=== PATIENT | female | born 1995 ===

== ENCOUNTER 2017-08-14 21:51 | Emergency (ER) | payer SELFPAY ==
[2017-08-14 22:12] VITALS: BP 156/93; PULSE 82; RESP 18; TEMP 98; O2SAT 99
--- NOTE | 2017-08-14 22:17 | ED PDOC ---
Upper Extremity Pain/Injury Time Seen by Provider: 08/14/17 22:15 Chief Complaint (Nursing): Upper Extremity Problem/Injury Chief Complaint (Provider): left arm pain History Per: Patient Additional Complaint(s): 21-year-old right-hand dominant female presents with pain to left arm ongoing for several months. Patient does not recall any trauma or injury. She states that today the pain got worse after ED visit. Patient took Advil earlier but this did not help. No associated chest pain, shortness of breath or dyspnea on exertion. Patient denies any associated numbness or tingling to affected area. No associated neck pain. Patient states she does do heavy lifting from time to time at work. Past Medical History Reviewed: Historical Data, Nursing Documentation, Vital Signs Vital Signs: Last Vital Signs Temp 98 F 08/14/17 22:09 Pulse 82 08/14/17 22:09 Resp 18 08/14/17 22:09 BP 156/93 H 08/14/17 22:09 Pulse Ox 99 08/14/17 22:09 - Medical History PMH: No Chronic Diseases - Surgical History Surgical History: No Surg Hx - Family History Family History: States: No Known Family Hx - Living Arrangements Living Arrangements: With Family - Social History Current smoker - smoking cessation education provided: No Alcohol: None Drugs: Denies - Allergies Allergies/Adverse Reactions: Allergies Allergy/AdvReac Type Severity Reaction Status Date / Time No Known Allergies Allergy Verified 08/14/17 22:09 Review of Systems ROS Statement: Except As Marked, All Systems Reviewed And Found Negative Constitutional: Negative for: Fever Cardiovascular: Negative for: Chest Pain Respiratory: Negative for: Cough Gastrointestinal: Negative for: Nausea, Vomiting Musculoskeletal: Positive for: Other (left arm pain ongoing for several months) Physical Exam - Reviewed Nursing Documentation Reviewed: Yes Vital Signs Reviewed: Yes - Physical Exam Appears: Positive for: Well, Non-toxic, No Acute Distress Skin: Negative for: Rash Eye Exam: Positive for: Normal appearance Neck: Positive for: Painless ROM Cardiovascular/Chest: Positive for: Regular Rate, Rhythm Respiratory: Positive for: Normal Breath Sounds Extremity: Positive for: Other (Tenderness to posterior left shoulder as well as left elbow region, full range of motion left shoulder and left elbow with pain, strong left handgrip, normal distal sensation) Neurologic/Psych: Positive for: Alert, Oriented - Laboratory Results Urine POC: Negative - ECG O2 Sat by Pulse Oximetry: 99 Pulse Ox Interpretation: Normal - Other Rad Left shoulder and elbow x-rays X-Ray: Interpreted by Me, Viewed By Me X-Ray Interpretation: no fx, no dis Medical Decision Making Medical Decision Makin21 year old with left arm pain ongoing for several months. Plan: PO tylenol X-ray left shoulder and left elbow Advised NSAID's for pain and follow up with clinic for further evaluation. Disposition - Clinical Impression Clinical Impression: Left arm pain - Patient ED Disposition Is Patient to be Admitted: No Counseled Patient/Family Regarding: Studies Performed, Diagnosis, Need For Followup - Disposition Referrals: [facility] [Outside] Disposition: Routine/Home Disposition Time: 23:30 Condition: STABLE Additional Instructions: Alternate tylenol every 4 hrs and motrin every 6 hrs. Follow up with clinic. Instructions: Arm Pain (ED) Forms: [employer] (Maltese)
--- NOTE | 2017-08-15 10:51 | RAD ---
PROCEDURE: Radiographs of the left elbow. HISTORY: pain COMPARISON: No prior. FINDINGS: BONES: Bone alignment and mineralization are normal. There is no acute displaced fracture or bone destruction. JOINTS: Normal. SOFT TISSUES: Normal. JOINT EFFUSION: None. OTHER FINDINGS: None IMPRESSION: No acute fracture or dislocation.
--- NOTE | 2017-08-15 11:16 | RAD ---
PROCEDURE: Radiographs of the Left Shoulder HISTORY: Pain COMPARISON: No prior. FINDINGS: BONES: Bone alignment and mineralization are normal. There is no acute displaced fracture or bone destruction. JOINTS: Normal. Glenohumeral and acromioclavicular joints preserved. SOFT TISSUES: Normal. OTHER FINDINGS: None. IMPRESSION: No acute fracture or dislocation.
== END 2017-08-14 23:43 | disposition home or self-care (01) ==
LOC: H.ER 21:51
DX: M79.602 Pain in left arm (principal)

== ENCOUNTER 2017-10-14 18:13 | Emergency (ER) | payer OTHER, SELFPAY ==
[2017-10-14 18:24] VITALS: O2SAT 100
[2017-10-14 19:16] LABS: BASO % 0.4 % (0.0-2.0); EOS # 0.1 K/uL (0.0-0.7); EOS % 1.3 % (0.0-4.0); HEMATOCRIT 36.8 % (34.0-47.0); LYMPH # 2.6 K/uL (1.0-4.3); LYMPH % 29.9 % (20.0-40.0); MEAN CELL VOLUME 85.7 fl (81.0-99.0); MEAN CORPUSCULAR HEMOGLOBIN 28.2 pg (27.0-31.0); MEAN PLATELET VOLUME 7.9 fl (7.2-11.7); MONO # 0.6 K/uL (0.0-0.8); MONO % 7.1 % (0.0-10.0); NEUT # 5.2 K/uL (1.8-7.0); NEUT % 61.3 % (50.0-75.0); NRBC % 0.1 % (0.0-0.0); RED CELL DISTRIBUTION WIDTH 14.3 % (11.5-14.5); WHITE BLOOD COUNT 8.5 K/uL (4.8-10.8)
--- NOTE | 2017-10-14 19:38 | ED PDOC ---
HPI: Chest Pain Time Seen by Provider: 10/14/17 18:25 Chief Complaint (Nursing): Palpitations Chief Complaint (Provider): Chest Pain History Per: Patient History/Exam Limitations: no limitations Onset/Duration Of Symptoms: Sudden Onset (1 hour prior to arrival) Current Symptoms Are (Timing): Still Present Additional Complaint(s): 21 y/o female with no past medical history, presents to the ED complaining of chest pain and associated shortness of breath and palpitations, with an onset of 1 hour prior to arrival. Patient describes the chest pain as pressure-like pain and the palpitations, as if her heart was racing; both seem to have resolved according to patient. Patient also states that just prior to onset she ate at [employer], which resulted in some stomach pain for a few minutes, but then resolved. She also reports of having a cough since yesterday, that has worsened and results in nonproductive phlegm. Last week she had 2 episodes of shortness of breath that occurred and resolved spontaneously after a few minutes. She denies any leg swelling, fever, sore throat, and rhinorrhea. Past Medical History Reviewed: Historical Data, Nursing Documentation, Vital Signs Vital Signs: Last Vital Signs Temp 98.8 F 10/14/17 18:56 Pulse 107 H 10/14/17 18:21 Resp 20 10/14/17 18:21 BP 135/87 10/14/17 18:21 Pulse Ox 100 10/14/17 19:43 - Medical History PMH: No Chronic Diseases - Surgical History Surgical History: No Surg Hx - Family History Family History: States: Unknown Family Hx - Social History Current smoker - smoking cessation education provided: No Ex-Smoker (has not smoked in the last 12 months): No Alcohol: Occasional Drugs: Denies - Immunization History Hx Tetanus Toxoid Vaccination: Yes - Home Medications Home Medications: Ambulatory Orders Medication Instructions Recorded Omeprazole Magnesium [Prilosec Otc] 20 mg PO DAILY #30 tcp 10/14/17 - Allergies Allergies/Adverse Reactions: Allergies Allergy/AdvReac Type Severity Reaction Status Date / Time No Known Allergies Allergy Verified 08/14/17 22:09 Review of Systems ROS Statement: Except As Marked, All Systems Reviewed And Found Negative Constitutional: Negative for: Fever ENT: Negative for: Nose Discharge, Throat Pain Cardiovascular: Positive for: Chest Pain (pressure like), Palpitations Respiratory: Positive for: Cough, Shortness of Breath Gastrointestinal: Positive for: Abdominal Pain Physical Exam - Reviewed Nursing Documentation Reviewed: Yes Vital Signs Reviewed: Yes - Physical Exam Appears: Positive for: Non-toxic, In Acute Distress Head Exam: Positive for: ATRAUMATIC, NORMOCEPHALIC Skin: Positive for: Warm, Dry Eye Exam: Positive for: EOMI, PERRL ENT: Negative for: Pharyngeal Erythema, Tonsillar Exudate Neck: Positive for: Painless ROM, Supple Cardiovascular/Chest: Positive for: Regular Rate, Rhythm, Chest Non Tender. Negative for: Murmur Respiratory: Positive for: Normal Breath Sounds. Negative for: Wheezing Gastrointestinal/Abdominal: Positive for: Soft, Tenderness (mild epigastric ttp) . Negative for: Mass, Distended, Guarding, Rebound Back: Positive for: Normal Inspection. Negative for: Decreased ROM Extremity: Positive for: Normal ROM. Negative for: Deformity Lymphatic: Negative for: Adenopathy Neurologic/Psych: Positive for: Alert, Mood/Affect (mildly anxious affect). Negative for: Motor/Sensory Deficits - Laboratory Results Result Diagrams: 10/14/17 19:10 10/14/17 19:10 - ECG ECG: Positive for: Interpreted By Ms ECG Rhythm: Positive for: Normal QRS, Normal ST Segment, Sinus Rhythm O2 Sat by Pulse Oximetry: 100 (RA) Pulse Ox Interpretation: Normal - Radiology X-Ray: Interpreted by Ms X-Ray Interpretation: No Acute Disease Medical Decision Making Medical Decision Making: Time: --18:53 Impression: --21 y/o female with chest pain Differential: --Pneumonia, Pulmonary Embolism, Thyroid Disease, Electrolyte abnormalities, Gastritis, Pancreatitis, GERD Plan: --ECG --Labs --Lipase --Magnesium --Phosphorous --Thyroid Stimulation --Troponin I --ED UDip --Ed Urine --Chest X-ray --Iv Insetion Reassess No clinically significant lab abnormalities DW pt findings and paln of care. Trial of PPIs and f/u clinic. Scribe Attestation: Documented by Miah Lara acting as a scribe for Anaid Griffith MD. Disposition - Clinical Impression Clinical Impression: Palpitations, Reflux gastritis Counseled Patient/Family Regarding: Studies Performed, Diagnosis, Need For Followup, Rx Given - Disposition Referrals: [facility] [place] [Outside] (CALL TOMORROW FOR APPOINTMENT FOR REEVALUATION IN 5-7 DAYS) Disposition: Routine/Home Disposition Time: 21:15 Condition: STABLE Prescriptions: Omeprazole Magnesium [Prilosec Otc] 20 mg PO DAILY #30 tcp Instructions: Palpitations (ED), Gastroesophageal Reflux Disease (ED)
[2017-10-14 19:40] LABS: PARTIAL THROMBOPLASTIN TIME 32.6 Seconds (25.6-37.1)
[2017-10-14 19:47] LABS: BILIRUBIN,TOTAL 0.6 mg/dl (0.2-1.3); CALCIUM 8.6 mg/dL (8.4-10.2); CARBON DIOXIDE 22 mmol/L (22-30); CHLORIDE 105 mmol/L (98-107); GFR AFRICAN-AMERICAN > 60; GLUCOSE,RANDOM 141 mg/dL (65-105); LIPASE 89 U/L (23-300); SODIUM 141 mmol/l (132-148)
[2017-10-14 19:50] LABS: ALB/GLOB RATIO 1.3 (1.0-2.1); ALKALINE PHOSPHATASE 68 U/L (38-126); ALT/SGPT 31 U/L (9-52); AST/SGOT 26 U/L (14-36); BLOOD UREA NITROGEN 10 mg/dl (7-17); MAGNESIUM 2.1 MG/DL (1.6-2.3); PHOSPHOROUS 3.2 mg/dl (2.5-4.5); POTASSIUM 4.3 MMOL/L (3.6-5.0); TOTAL PROTEIN 7.5 G/DL (6.3-8.2)
[2017-10-14 20:18] LABS: THYROID STIMULATING HORMONE 1.03 mIU/ML (0.46-4.68)
[2017-10-14 22:04] VITALS: BP 128/74; PULSE 82; RESP 16; TEMP 98
--- NOTE | 2017-10-15 13:13 | RAD ---
HISTORY: chest pain palpitation COMPARISON: 03/02/2011 TECHNIQUE: Chest PA and lateral FINDINGS: LUNGS: No active pulmonary disease. PLEURA: No significant pleural effusion identified. No pneumothorax apparent. CARDIOVASCULAR: Normal. OSSEOUS STRUCTURES: No significant abnormalities. VISUALIZED UPPER ABDOMEN: Normal. OTHER FINDINGS: None. IMPRESSION: No active disease. No significant interval change compared to the prior examination(s).
--- NOTE | 2017-10-17 11:59 | CARD ---
APPROVED REPORT EKG Measurement Heart [id number] <Conclusion> Normal sinus rhythm with sinus arrhythmia Normal ECG
== END 2017-10-14 21:32 | disposition home or self-care (01) ==
LOC: H.ER 18:13
DX: R00.2 Palpitations (principal); K21.9 Gastro-esophageal reflux disease without esophagitis; K29.60 Other gastritis without bleeding; R10.9 Unspecified abdominal pain

== ENCOUNTER 2017-12-04 13:39 | Emergency (ER) | payer SELFPAY ==
[2017-12-04 13:55] VITALS: BP 136/81; PULSE 79; RESP 16; TEMP 98; O2SAT 100
--- NOTE | 2017-12-04 14:43 | ED PDOC ---
HPI: Female Pain Time Seen by Provider: 12/04/17 14:16 Chief Complaint (Nursing): Female Genitourinary Chief Complaint (Provider): Female Genitourinary History Per: Patient History/Exam Limitations: no limitations Onset/Duration Of Symptoms: Days (x1) Current Symptoms Are (Timing): Still Present Additional Complaint(s): 22 y/o female presents to the ED complaining that there has been a condom stuck in her since 2AM this morning. Patient denies any associated vaginal bleeding, discharge, pain, nausea, vomiting, diarrhea, fever, or urinary symptoms. She states she could not find the condom anywhere and is certain that it is stuck. PMD: Unknown Past Medical History Reviewed: Historical Data, Nursing Documentation, Vital Signs Vital Signs: Last Vital Signs Temp 98.0 F 12/04/17 13:51 Pulse 79 12/04/17 13:51 Resp 16 12/04/17 13:51 BP 136/81 12/04/17 13:51 Pulse Ox 100 12/04/17 13:51 - Medical History PMH: No Chronic Diseases - Surgical History Surgical History: No Surg Hx - Family History Family History: States: Unknown Family Hx - Social History Current smoker - smoking cessation education provided: No Alcohol: None Drugs: Denies - Immunization History Hx Tetanus Toxoid Vaccination: Yes - Home Medications Home Medications: Ambulatory Orders Medication Instructions Recorded No Known Home Med 12/04/17 - Allergies Allergies/Adverse Reactions: Allergies Allergy/AdvReac Type Severity Reaction Status Date / Time No Known Allergies Allergy Verified 12/04/17 14:37 Review of Systems ROS Statement: Except As Marked, All Systems Reviewed And Found Negative Constitutional: Negative for: Fever, Chills Cardiovascular: Negative for: Chest Pain Respiratory: Negative for: Shortness of Breath Gastrointestinal: Negative for: Nausea, Vomiting, Abdominal Pain, Diarrhea Genitourinary Female: Positive for: Other (foreign body). Negative for: Dysuria , Frequency, Vaginal Discharge, Vaginal Bleeding Physical Exam - Reviewed Nursing Documentation Reviewed: Yes Vital Signs Reviewed: Yes - Physical Exam Appears: Positive for: Non-toxic, No Acute Distress Head Exam: Positive for: ATRAUMATIC, NORMOCEPHALIC Skin: Positive for: Normal Color, Warm, Dry Eye Exam: Positive for: EOMI, Normal appearance, PERRL Neck: Positive for: Normal, Painless ROM Cardiovascular/Chest: Positive for: Regular Rate, Rhythm. Negative for: Murmur Respiratory: Positive for: Normal Breath Sounds. Negative for: Accessory Muscle Use, Respiratory Distress Gastrointestinal/Abdominal: Positive for: Normal Exam, Soft. Negative for: Tenderness Pelvic Exam: Positive for: External Exam Normal, Other (Speculum exam- condom identified and removed without difficulty. No bleeding. Patient tolerated procedure well. Supervisor [employer]: YAMILET Frias ) Back: Positive for: Normal Inspection. Negative for: L CVA Tenderness, R CVA Tenderness, Vertebral Tenderness Extremity: Positive for: Normal ROM. Negative for: Pedal Edema, Deformity Neurologic/Psych: Positive for: Alert, Oriented (x3) - ECG O2 Sat by Pulse Oximetry: 100 (RA) Pulse Ox Interpretation: Normal - Progress ED Course And Treament: 1520: Fu with pcp. AAOx3. Pain free. Tolerated po. Medical Decision Making Medical Decision Making: Time: 14:27 Initial Plan: * Urine preg * Urine dip * Foreign body removed successfully Patient is medically stable for discharge home. Scribe Attestation: Documented by Mary Reyes, acting as a scribe for Yg Medellin MD Provider Scribe Attestation: All medical record entries made by the Scribe were at my direction and personally dictated by me. I have reviewed the chart and agree that the record accurately reflects my personal performance of the history, physical exam, medical decision making, and the department course for this patient. I have also personally directed, reviewed, and agree with the discharge instructions and disposition. Disposition - Clinical Impression Clinical Impression: Foreign body in vagina - Patient ED Disposition Is Patient to be Admitted: No Counseled Patient/Family Regarding: Diagnosis, Need For Followup - Disposition Referrals: [facility] [Outside] - 12/05/17 Disposition: Routine/Home Disposition Time: 15:20 Condition: STABLE Additional Instructions: Return if not better in 3 days. Instructions: Vaginal Foreign Body (ED)
== END 2017-12-04 15:47 | disposition home or self-care (01) ==
LOC: H.ER 13:39
DX: T19.2XXA Foreign body in vulva and vagina, initial encounter (principal); X58.XXXA Exposure to other specified factors, initial encounter

== ENCOUNTER 2019-02-23 18:14 | Emergency (ER) | payer SELFPAY ==
--- NOTE | 2019-02-23 19:50 | ED PDOC ---
Lower Extremity Pain/Injury Time Seen by Provider: 02/23/19 19:07 Chief Complaint (Nursing): Lower Extremity Problem/Injury Chief Complaint (Provider): Lower Extremity Problem/Injury History Per: Patient History/Exam Limitations: no limitations Onset/Duration Of Symptoms: Days (1x) Current Symptoms Are (Timing): Still Present Severity: Moderate Additional Complaint(s): 23 year old female with no pertinent past medical history presents to the ED for an evaluation of right knee pain that started today. Patient states that earlier today at work, she was standing with her right foot planted into the ground, when she twisted her body, immediately having pain to her right knee. Patient states that 2x years ago she had a patellar dislocation which did no require surgery, but did require physical therapy. Patient states that the pain is only present with ambulation. Patient denies having any trauma, numbness, or tingling. PMD: None provided. Past Medical History Reviewed: Historical Data, Nursing Documentation, Vital Signs Vital Signs: Last Vital Signs Temp 99 F 02/23/19 18:37 Pulse 95 H 02/23/19 18:37 Resp 16 02/23/19 18:37 BP 140/89 02/23/19 18:37 Pulse Ox 99 02/23/19 18:37 ZAK Report Viewed: Yes - Medical History PMH: No Chronic Diseases - Surgical History Surgical History: No Surg Hx - Family History Family History: States: No Known Family Hx - Social History Current smoker - smoking cessation education provided: No Alcohol: None Drugs: Denies - Immunization History Hx Tetanus Toxoid Vaccination: Yes - Home Medications Home Medications: Ambulatory Orders Medication Instructions Recorded No Known Home Med 12/04/17 - Allergies Allergies/Adverse Reactions: Allergies Allergy/AdvReac Type Severity Reaction Status Date / Time No Known Allergies Allergy Verified 12/04/17 14:37 Review of Systems ROS Statement: Except As Marked, All Systems Reviewed And Found Negative Musculoskeletal: Positive for: Other (right knee pain only with ambulation) Neurological: Negative for: Numbness ((-) tingling) Physical Exam - Reviewed Nursing Documentation Reviewed: Yes Vital Signs Reviewed: Yes - Physical Exam Appears: Positive for: Well, Non-toxic, No Acute Distress Head Exam: Positive for: ATRAUMATIC, NORMOCEPHALIC Skin: Positive for: Normal Color, Warm, Dry Pulses-Dorsalis Pedis (L): 2+ Pulses-Dorsalis Pedis (R): 2+ Extremity: Positive for: Other (right knee: mild tenderness and swelling. (-) deformity. limited range of motion secondary to pain.) Neurological/Psych: Positive for: Awake, Alert, Oriented (3x) - ECG O2 Sat by Pulse Oximetry: 99 (RA) Pulse Ox Interpretation: Normal Medical Decision Making Medical Decision Makin:07 Initial impression: 23 year old female with knee pain Initial plan: * XRay knee right 3 views * reevaluation Knee immobilized in immobilizer applied by implementation technician. Crutches and crutch walking instructions provided. Pt informed of results and advised to f/u with ortho for further evaluation but is to return to ED immediately if symptoms worsen. Scribe Attestation: Documented by Adia Cuevas, acting as a scribe for Junior Chandler. Provider Scribe Attestation: All medical record entries made by the Scribe were at my direction and personally dictated by me. I have reviewed the chart and agree that the record accurately reflects my personal performance of the history, physical exam, medical decision making, and the department course for this patient. I have also personally directed, reviewed, and agree with the discharge instructions and disposition. Disposition - Clinical Impression Clinical Impression: Knee injury - Patient ED Disposition Is Patient to be Admitted: No - Disposition Referrals: [facility] [Outside] [facility] [place] [Outside] Angus Durand III, MD [Staff Provider] - Disposition: Routine/Home Disposition Time: 20:30 Condition: STABLE Additional Instructions: FOLLOW UP WITH ORTHO FOR FURTHER EVALUATION RETURN TO ED IMMEDIATELY IF SYMPTOMS WORSEN STEPHANIE JEAN BAPTISTE, thank you for letting us take care of you today. Your provider was Imelda Barron MD and you were treated for RT KNEE INJURY. The emergency medical care you received today was directed at your acute symptoms. If you were prescribed any medication, please fill it and take as directed. It may take several days for your symptoms to resolve. Return to the Emergency Department if your symptoms worsen, do not improve, or if you have any other problems. Please contact your doctor or call one of the physicians/clinics you have been referred to that are listed on the Patient Visit Information form that is included in your discharge packet. Bring any paperwork you were given at discharge with you along with any medications you are taking to your follow up visit. Our treatment cannot replace ongoing medical care by a primary care provider outside of the emergency department. Thank you for allowing the [facility] team to be part of your care today. If you had an X-Ray or CT scan: A Radiologist will review the ED reading if any change in treatment is needed we will contact you. If you had a blood, urine, or wound culture: It will take several days for the results, if any change in treatment is needed we will contact you. If you had an STI test: It will take 48 hours for the results. Please call after 1 week if you have not heard back. Instructions: How to Use Crutches, Knee Immobilizer (DC), Knee Sprain (DC), Going Up and Down Curbs or Stairs With a Walker or Crutches Forms: [employer] (Turkish), [facility] ED School/Work Excuse
[2019-02-23 22:10] VITALS: BP 133/69; PULSE 88; RESP 18; TEMP 98.7; O2SAT 100
--- NOTE | 2019-02-24 08:21 | RAD ---
Date of service: 02/23/2019 PROCEDURE: Right Knee Radiographs. HISTORY: trauma COMPARISON: None. TECHNIQUE: 2 views obtained. FINDINGS: BONES: No acute fracture or destructive bony lesion identified. JOINTS: Normal. No osteoarthritis. JOINT EFFUSION: None. OTHER FINDINGS: None. IMPRESSION: Normal radiographs of the right knee.
== END 2019-02-23 21:39 | disposition home or self-care (01) ==
LOC: H.ER 18:14
DX: S89.91XA Unspecified injury of right lower leg, initial encounter (principal); X50.9XXA Other and unspecified overexertion or strenuous movements or postures, initial encounter; Y99.0 Civilian activity done for income or pay